=== PATIENT | male | born 1940 | race Caucasian/White ===

== ENCOUNTER 2021-10-21 12:35 | Inpatient (IN) | payer MEDICARE, MEDICAID ==
[2021-10-21] MEDS ORDERED: Ondansetron 4 MG Tab.DIS PO PRN (17:13)
[2021-10-21] MEDS ORDERED: Acetaminophen 325 MG Tab PO PRN ×2 (17:13→17:18)
[2021-10-21] MEDS ORDERED: Docusate Sodium 100 MG Cap PO PRN (17:13)
[2021-10-21] MEDS ORDERED: Polyethylene Glycol 3350 Powder 17 GM Packet PO PRN (17:18)
[2021-10-21] MEDS: Mirtazapine 15 MG Tab PO SCH ×2 (19:44→20:07)
[2021-10-21] MEDS: Gabapentin 100 MG Cap PO SCH ×2 (19:44→20:07)
[2021-10-21] MEDS: Pantoprazole 40 MG Tab.CR PO SCH ×2 (19:44→20:07)
[2021-10-21] MEDS: Apixaban 5 MG Tab PO SCH ×2 (19:45→20:07)
[2021-10-21] MEDS: oxyCODONE 5 MG Tab PO SCH ×2 (19:45→20:07)
[2021-10-21] MEDS: Insulin Glargine,Hum.Rec.Anlog 100 UNIT/ML 3 ML Pen SUBCUT SCH (20:08)
[2021-10-21] MEDS: Triamcinolone Acetonide 0.1% Crm 15 GM Tube TOP SCH (20:10)
[2021-10-22] MEDS: Levothyroxine 25 MCG Tab PO SCH ×2 (06:06→06:41)
[2021-10-22] MEDS: Apixaban 5 MG Tab PO SCH ×2 (08:50→20:28)
[2021-10-22] MEDS: Pantoprazole 40 MG Tab.CR PO SCH ×2 (08:51→20:28)
[2021-10-22] MEDS: oxyCODONE 5 MG Tab PO SCH ×2 (08:51→20:28)
[2021-10-22] MEDS: Magnesium Oxide 500 MG Tab PO SCH (08:51)
[2021-10-22] MEDS ORDERED: Gabapentin 100 MG Cap PO SCH (09:00)
[2021-10-22] MEDS: Triamcinolone Acetonide 0.1% Crm 15 GM Tube TOP SCH ×2 (10:03→20:31)
[2021-10-22] MEDS ORDERED: oxyCODONE 5 MG Tab PO ONE (10:51)
[2021-10-22] MEDS ORDERED: Diclofenac Sodium 1% Gel 100 GM Tube TOP PRN (11:42)
[2021-10-22] MEDS: Naloxegol Oxalate 25 MG Tab PO SCH (11:59)
[2021-10-22] MEDS: Acetaminophen 325 MG Tab PO SCH ×2 (17:00→21:59)
[2021-10-22] MEDS: Mirtazapine 15 MG Tab PO SCH (20:28)
[2021-10-22] MEDS: Insulin Glargine,Hum.Rec.Anlog 100 UNIT/ML 3 ML Pen SUBCUT SCH (20:29)
[2021-10-22] MEDS ORDERED: oxyCODONE 5 MG Tab PO SCH (21:00)
[2021-10-22] MEDS: Gabapentin 100 MG Cap PO SCH (21:59)
[2021-10-23] MEDS: Levothyroxine 25 MCG Tab PO SCH ×2 (05:03→09:41)
[2021-10-23] MEDS: Acetaminophen 325 MG Tab PO SCH ×4 (05:03→22:02)
[2021-10-23] MEDS: Apixaban 5 MG Tab PO SCH ×2 (09:41→20:26)
[2021-10-23] MEDS: Pantoprazole 40 MG Tab.CR PO SCH ×2 (09:42→20:25)
[2021-10-23] MEDS: Magnesium Oxide 500 MG Tab PO SCH (09:42)
[2021-10-23] MEDS: Naloxegol Oxalate 25 MG Tab PO SCH (09:42)
[2021-10-23] MEDS: Triamcinolone Acetonide 0.1% Crm 15 GM Tube TOP SCH ×2 (09:43→20:27)
[2021-10-23] MEDS: oxyCODONE 5 MG Tab PO SCH ×2 (09:43→20:25)
[2021-10-23] MEDS ORDERED: oxyCODONE 5 MG Tab PO PRN (10:20)
[2021-10-23] MEDS ORDERED: oxyCODONE 5 MG Tab PO ONE (10:20)
[2021-10-23] MEDS: Gabapentin 100 MG Cap PO SCH ×2 (10:35→22:02)
[2021-10-23] MEDS: Insulin Glargine,Hum.Rec.Anlog 100 UNIT/ML 3 ML Pen SUBCUT SCH (20:25)
[2021-10-23] MEDS: Mirtazapine 15 MG Tab PO SCH (20:25)
[2021-10-24] MEDS: Acetaminophen 325 MG Tab PO SCH ×4 (05:22→22:57)
[2021-10-24] MEDS: Levothyroxine 25 MCG Tab PO SCH ×2 (06:07→06:33)
[2021-10-24] MEDS: Apixaban 5 MG Tab PO SCH ×2 (09:59→20:22)
[2021-10-24] MEDS: Naloxegol Oxalate 25 MG Tab PO SCH (10:00)
[2021-10-24] MEDS: Magnesium Oxide 500 MG Tab PO SCH (10:00)
[2021-10-24] MEDS: oxyCODONE 5 MG Tab PO SCH ×2 (10:00→20:22)
[2021-10-24] MEDS: Pantoprazole 40 MG Tab.CR PO SCH ×2 (10:00→20:22)
[2021-10-24] MEDS: Triamcinolone Acetonide 0.1% Crm 15 GM Tube TOP SCH ×2 (10:01→20:21)
[2021-10-24] MEDS: Gabapentin 100 MG Cap PO SCH ×2 (10:01→22:57)
[2021-10-24] MEDS: Insulin Glargine,Hum.Rec.Anlog 100 UNIT/ML 3 ML Pen SUBCUT SCH (20:17)
[2021-10-24] MEDS: Mirtazapine 15 MG Tab PO SCH (20:22)
[2021-10-25] MEDS: Acetaminophen 325 MG Tab PO SCH ×4 (05:42→22:10)
[2021-10-25] MEDS: Levothyroxine 25 MCG Tab PO SCH ×2 (05:42→06:31)
[2021-10-25] MEDS: oxyCODONE 5 MG Tab PO SCH ×2 (08:33→20:47)
[2021-10-25] MEDS: Naloxegol Oxalate 25 MG Tab PO SCH (08:33)
[2021-10-25] MEDS: Magnesium Oxide 500 MG Tab PO SCH (08:34)
[2021-10-25] MEDS: Triamcinolone Acetonide 0.1% Crm 15 GM Tube TOP SCH ×2 (08:34→20:48)
[2021-10-25] MEDS: Pantoprazole 40 MG Tab.CR PO SCH ×2 (08:34→20:47)
[2021-10-25] MEDS: Apixaban 5 MG Tab PO SCH ×2 (08:34→20:47)
[2021-10-25] MEDS: Gabapentin 100 MG Cap PO SCH ×2 (10:49→22:10)
[2021-10-25] MEDS: Insulin Glargine,Hum.Rec.Anlog 100 UNIT/ML 3 ML Pen SUBCUT SCH (20:46)
[2021-10-25] MEDS: Mirtazapine 15 MG Tab PO SCH (20:47)
[2021-10-26] MEDS: Acetaminophen 325 MG Tab PO SCH ×4 (06:01→22:18)
[2021-10-26] MEDS: Levothyroxine 25 MCG Tab PO SCH ×2 (06:02→06:37)
[2021-10-26] MEDS ORDERED: Cetirizine 10 MG Tab PO ONE (10:35)
[2021-10-26] MEDS: Naloxegol Oxalate 25 MG Tab PO SCH (10:42)
[2021-10-26] MEDS: Apixaban 5 MG Tab PO SCH ×2 (10:42→20:41)
[2021-10-26] MEDS: oxyCODONE 5 MG Tab PO SCH ×2 (10:42→20:41)
[2021-10-26] MEDS: Triamcinolone Acetonide 0.1% Crm 15 GM Tube TOP SCH ×2 (10:43→20:42)
[2021-10-26] MEDS: Gabapentin 100 MG Cap PO SCH ×2 (10:45→22:18)
[2021-10-26] MEDS: Pantoprazole 40 MG Tab.CR PO SCH ×2 (10:48→20:41)
[2021-10-26] MEDS: Magnesium Oxide 500 MG Tab PO SCH (10:57)
[2021-10-26] MEDS: Mirtazapine 15 MG Tab PO SCH (20:41)
[2021-10-26] MEDS: Insulin Glargine,Hum.Rec.Anlog 100 UNIT/ML 3 ML Pen SUBCUT SCH (20:51)
[2021-10-27] MEDS: Acetaminophen 325 MG Tab PO SCH (04:18)
[2021-10-27] MEDS: Levothyroxine 25 MCG Tab PO SCH (06:32)
[2021-10-27] MEDS: Naloxegol Oxalate 25 MG Tab PO SCH (08:56)
[2021-10-27] MEDS: oxyCODONE 5 MG Tab PO SCH (08:56)
[2021-10-27] MEDS: Apixaban 5 MG Tab PO SCH (08:56)
[2021-10-27] MEDS: Pantoprazole 40 MG Tab.CR PO SCH (08:56)
[2021-10-27] MEDS: Triamcinolone Acetonide 0.1% Crm 15 GM Tube TOP SCH (08:57)
[2021-10-27] MEDS ORDERED: Acetaminophen 325 MG Tab PO PRN (09:07)
== END 2021-10-27 10:20 | disposition hospice, home (50) | DRG 948 ==
LOC: KA.MS 12:35
PROVIDERS: ADMIT Nurse Practitioner Family; ATTEND Nurse Practitioner Family
DX: R53.1 Weakness (principal); C22.0 Liver cell carcinoma; E78.5 Hyperlipidemia, unspecified; E03.9 Hypothyroidism, unspecified; D64.9 Anemia, unspecified; E11.42 Type 2 diabetes mellitus with diabetic polyneuropathy; I50.9 Heart failure, unspecified; K27.9 Peptic ulcer, site unspecified, unspecified as acute or chronic, without hemorrhage or perforation; H35.30 Unspecified macular degeneration; Z20.822 Contact with and (suspected) exposure to COVID-19; Z66 Do not resuscitate; Z51.5 Encounter for palliative care; I48.91 Unspecified atrial fibrillation; Z79.899 Other long term (current) drug therapy; Z79.890 Hormone replacement therapy; Z79.1 Long term (current) use of non-steroidal anti-inflammatories (NSAID); Z79.01 Long term (current) use of anticoagulants; Z97.3 Presence of spectacles and contact lenses; Z95.0 Presence of cardiac pacemaker; Z89.9 Acquired absence of limb, unspecified; Z87.19 Personal history of other diseases of the digestive system; Z79.4 Long term (current) use of insulin; Z85.118 Personal history of other malignant neoplasm of bronchus and lung; Z98.890 Other specified postprocedural states; Z87.891 Personal history of nicotine dependence
CPT/HCPCS: 82947; A9270-GY; U0002

== ENCOUNTER 2021-10-27 10:13 | Inpatient (IN) | payer MEDICARE, MEDICAID ==
[2021-10-27] MEDS ORDERED: Polyethylene Glycol 3350 Powder 17 GM Packet PO PRN (10:24)
[2021-10-27] MEDS ORDERED: Acetaminophen 325 MG Tab PO PRN (10:24)
[2021-10-27] MEDS ORDERED: Ondansetron 4 MG Tab.DIS PO PRN (10:24)
[2021-10-27] MEDS ORDERED: oxyCODONE 5 MG Tab PO PRN (10:24)
[2021-10-27] MEDS ORDERED: Diclofenac Sodium 1% Gel 100 GM Tube TOP PRN (10:24)
[2021-10-27] MEDS ORDERED: Docusate Sodium 100 MG Cap PO PRN (10:24)
[2021-10-27] MEDS: Gabapentin 100 MG Cap PO SCH (11:33)
[2021-10-27] MEDS ORDERED: Menthol 7.6 MG Sugar Free Lozenge ONE (20:16)
[2021-10-27] MEDS: Apixaban 5 MG Tab PO SCH (20:58)
[2021-10-27] MEDS: oxyCODONE 5 MG Tab PO SCH (20:58)
[2021-10-27] MEDS: Pantoprazole 40 MG Tab.CR PO SCH (20:58)
[2021-10-27] MEDS: Triamcinolone Acetonide 0.1% Crm 15 GM Tube TOP SCH (20:59)
[2021-10-27] MEDS ORDERED: Mirtazapine 15 MG Tab PO SCH (21:00)
[2021-10-27] MEDS ORDERED: Insulin Glargine,Hum.Rec.Anlog 100 UNIT/ML 3 ML Pen SUBCUT SCH (21:00)
[2021-10-27] MEDS ORDERED: Gabapentin 100 MG Cap PO SCH (23:00)
[2021-10-28] MEDS ORDERED: Glucose Gel 15 GM in 37.5 GM Tube PO ONE (00:11)
[2021-10-28] MEDS ORDERED: Saliva Substitute Oral Spray 120 ML Bottle MUCMEM PRN (06:09)
[2021-10-28] MEDS ORDERED: Levothyroxine 25 MCG Tab PO SCH (07:30)
[2021-10-28] MEDS ORDERED: Naloxegol Oxalate 25 MG Tab PO SCH (09:00)
[2021-10-28] MEDS: Triamcinolone Acetonide 0.1% Crm 15 GM Tube TOP SCH (10:28)
[2021-10-28] MEDS: oxyCODONE 5 MG Tab PO SCH (10:28)
[2021-10-28] MEDS: Apixaban 5 MG Tab PO SCH (10:28)
[2021-10-28] MEDS: Pantoprazole 40 MG Tab.CR PO SCH (10:28)
[2021-10-28] MEDS: Gabapentin 100 MG Cap PO SCH (10:29)
== END 2021-10-28 10:30 | disposition other institution (70) | DRG 948 ==
LOC: KA.MS 10:20 → UNDOADMIN 10:20 → UNDODISIN 10-28 10:30
PROVIDERS: ADMIT Internal Medicine; ATTEND Internal Medicine
DX: R53.81 Other malaise (principal); C22.0 Liver cell carcinoma; C49.9 Malignant neoplasm of connective and soft tissue, unspecified; C78.00 Secondary malignant neoplasm of unspecified lung; H91.90 Unspecified hearing loss, unspecified ear; H54.7 Unspecified visual loss; H35.30 Unspecified macular degeneration; E03.9 Hypothyroidism, unspecified; D64.9 Anemia, unspecified; I50.9 Heart failure, unspecified; Z66 Do not resuscitate; E11.42 Type 2 diabetes mellitus with diabetic polyneuropathy; Z51.5 Encounter for palliative care; Z91.09 Other allergy status, other than to drugs and biological substances; Z88.1 Allergy status to other antibiotic agents; Z79.890 Hormone replacement therapy; Z79.899 Other long term (current) drug therapy; Z79.4 Long term (current) use of insulin; Z95.0 Presence of cardiac pacemaker
CPT/HCPCS: 82947; A9270-GY

== ENCOUNTER 2021-10-28 10:30 | Inpatient (IN) | payer OTHER ==
[2021-10-28] MEDS ORDERED: Acetaminophen 650 MG Supp RECTAL PRN (13:39)
[2021-10-28] MEDS ORDERED: Bisacodyl 10 MG Supp RECTAL PRN (14:18)
[2021-10-28] MEDS ORDERED: MORPHINE SL PRN (14:20)
[2021-10-28] MEDS ORDERED: CAMPHOR TOP PRN (14:23)
[2021-10-28] MEDS ORDERED: MENTHOL TOP PRN (14:23)
[2021-10-28] MEDS ORDERED: Alum Hydrox/Mag Hydrox/Simeth 40 ML, diphenhydrAMINE 12.5 MG, Lidocaine 2% 40 ML PO PRN ×3 (14:24)
[2021-10-28] MEDS ORDERED: ACETAMINOPHEN 650 MG RECTAL PRN (14:52)
[2021-10-28] MEDS ORDERED: HYOSCYAMINE 0.125 MG SL PRN (14:58)
[2021-10-28] MEDS ORDERED: HALOPERIDOL 2 MG/ML PO PRN (15:00)
[2021-10-28] MEDS ORDERED: LORAZEPAM 2 MG/ML PO PRN (15:03)
[2021-10-28] MEDS ORDERED: MAGIC MOUTHWASH PO PRN (15:11)
[2021-10-28] MEDS: ONDANSETRON 8 MG SL SCH ×3 (15:46→23:50)
[2021-10-28] MEDS: MORPHINE PO SCH ×2 (15:46→22:02)
[2021-10-28] MEDS: LORAZEPAM 2 MG/ML PO SCH ×2 (15:46→21:35)
[2021-10-28] MEDS: HYDROXYZINE HCL 25 MG PO SCH ×2 (15:46→21:10)
[2021-10-29] MEDS: LORAZEPAM 2 MG/ML PO SCH ×2 (00:36→06:19)
[2021-10-29] MEDS: Morphine 10 MG/0.5 ML Oral Syringe PO SCH ×2 (02:16→09:55)
[2021-10-29] MEDS: ONDANSETRON 8 MG SL SCH ×2 (03:00→07:26)
[2021-10-29] MEDS ORDERED: hydrOXYzine HCl 25 MG Tab PO SCH (05:00)
== END 2021-10-29 11:36 | disposition home or self-care (01) | DRG 951 ==
LOC: KA.MS 10:30
PROVIDERS: ADMIT Nurse Practitioner Family; ATTEND Nurse Practitioner Family
DX: Z51.5 Encounter for palliative care (principal); C22.0 Liver cell carcinoma; C49.9 Malignant neoplasm of connective and soft tissue, unspecified; C78.00 Secondary malignant neoplasm of unspecified lung; H91.90 Unspecified hearing loss, unspecified ear; H54.7 Unspecified visual loss; E78.00 Pure hypercholesterolemia, unspecified; I50.9 Heart failure, unspecified; E03.9 Hypothyroidism, unspecified; D64.9 Anemia, unspecified; I48.91 Unspecified atrial fibrillation; E11.42 Type 2 diabetes mellitus with diabetic polyneuropathy; H35.30 Unspecified macular degeneration; Z66 Do not resuscitate; Z91.09 Other allergy status, other than to drugs and biological substances; Z88.1 Allergy status to other antibiotic agents; Z79.4 Long term (current) use of insulin; Z79.890 Hormone replacement therapy; Z79.899 Other long term (current) drug therapy; Z95.0 Presence of cardiac pacemaker
CPT/HCPCS: A9270-GY